=== PATIENT | female | born 1975 | race Caucasian/White ===

== ENCOUNTER 2017-01-31 15:01 | Emergency (ER) ==
[2017-01-31 15:05] VITALS: BP 149/93; TEMP 97.9; BMI 38.9
== END 2017-01-31 17:45 | disposition left against medical advice (07) ==
LOC: ED 15:01
DX: H57.9 Unspecified disorder of eye and adnexa (principal)
CPT/HCPCS: 99282

== ENCOUNTER 2017-10-12 19:03 | Emergency (ER) ==
[2017-10-12 19:08] VITALS: BMI 34.5
--- NOTE | 2017-10-12 19:32 | ED.PDOC ---
General ED Provider: Dr. CHARLES SMITH Chief Complaint: Cellulitis Stated Complaint: swelling redness in the right arm, thinks spider bite, Time Seen by Physician: 19:30 Mode of Arrival: Walk-In Information Source: Patient Primary Care Provider: JOSE JUAN HARRISON Nursing and Triage Documentation Reviewed and Agree: Yes Skin Complaint Exam - Skin/Soft Tissue Complaint/Exam Symptoms Are: Still present Timing: Constant Initial Severity: Moderate Current Severity: Moderate Character: Reports: Redness, Swelling, Raised, Painful Aggravating: Reports: Touch Alleviating: Reports: None Associated Signs and Symptoms: Reports: Bruising, Tenderness, Red streaks, Joint swelling Related Surgical History: Reports: None Recent Exposure to Others w/Similar Symptoms: No Skin Findings: Present: Erythema, Induration. Absent: Fluctuant mass Differential Diagnoses: Abscess, Cellulitis Review of Systems - Review Of Systems Constitutional: Reports: No symptoms Eyes: Reports: No symptoms Ears, Nose, Mouth, Throat: Reports: No symptoms Respiratory: Reports: No symptoms Cardiac: Reports: No symptoms GI: Reports: No symptoms : Reports: No symptoms Musculoskeletal: Reports: No symptoms Skin: Reports: No symptoms Neurological: Reports: No symptoms Endocrine: Reports: No symptoms Hematologic/Lymphatic: Reports: No symptoms All Other Systems: Reviewed and Negative Past Medical History - Past Medical History Previously Healthy: Yes Endocrine: Reports: None Cardiovascular: Reports: Hypertension Respiratory: Reports: None Hematological: Reports: None Gastrointestinal: Reports: None Genitourinary: Reports: UTI Neuro/Psych: Reports: None Musculoskeletal: Reports: Arthritis Cancer: Reports: Other (ovarian ) Last Menstrual Period: none Other Pertinent Past Medical History: FIBROMYALGIA. - Surgical History General Surgical History: Reports: Hysterectomy, , Tonsillectomy, Hernia Repair, Other (OVARIAN SURGERY) - Family History Family History: Reports: Unknown - Social History Smoking Status: Current every day smoker, Light tobacco smoker Smoking Cessation Counseling Time: > 3 min - 10 min Hx Substance Use: No Alcohol Screening: None Physical Exam - Physical Exam Appearance: Well-appearing, Obese Eyes: EUSEBIO, EOMI, Conjunctiva clear ENT: Ears normal, Nose normal, Oropharynx normal Respiratory: Airway patent, Breath sounds clear, Breath sounds equal, Respirations nonlabored Cardiovascular: RRR, Pulses normal, No rub, No murmur GI/: Soft, Nontender, No masses, Bowel sounds normal, No Organomegaly Musculoskeletal: Normal strength, ROM intact, No edema, No calf tenderness Skin: Warm, Dry, Normal color Neurological: Sensation intact, Motor intact, Reflexes intact, Cranial nerves intact, Alert, Oriented Psychiatric: Affect appropriate, Mood appropriate Critical Care Note - Critical Care Note Total Time (mins): 15 Course - Course Hematology/Chemistry: 10/12/17 19:46 10/12/17 19:46 Orders, Labs, Meds: Lab Review 10/12/17 10/12/17 10/12/17 19:46 19:46 19:46 WBC 12.08 H RBC 3.98 L Hgb 12.9 Hct 35.8 L MCV 89.9 MCH 32.4 H MCHC 36.0 H RDW Coeff of Mihir 12.6 Plt Count 311 Immature Gran % (Auto) 0.2 Neut % (Auto) 57.5 Lymph % (Auto) 32.7 [place] % (Auto) 5.9 Eos % (Auto) 3.2 Baso % (Auto) 0.5 Immature Gran # (Auto) 0.0 Neut # 6.9 Lymph # 4.0 H [place] # 0.7 Eos # 0.4 Baso # 0.1 D-Dimer (Manual) 556.59 Sodium 143 Potassium 2.6 L* Chloride 108 H Carbon Dioxide 20 L Anion Gap 17.6 BUN 14 Creatinine 0.89 Estimated GFR (MDRD) 70.00 BUN/Creatinine Ratio 15.73 Glucose 99 Calcium 9.5 Total Bilirubin 0.23 AST 14 L ALT 16 Alkaline Phosphatase 76 Total Protein 7.5 Albumin 3.2 L Globulin 4.3 Albumin/Globulin Ratio 0.74 Orders Category Date Time Status ED IV/MEDIPORT/POWERPORT .ONCE EMERGENCY 10/12/17 20:57 Active BLOOD CULTURE (ED ONLY) Stat LAB 10/12/17 19:46 Received CBC W/ AUTO DIFF Stat LAB 10/12/17 19:46 Completed COMPREHENSIVE METABOLIC PANEL Stat LAB 10/12/17 19:46 Completed D-DIMER Stat LAB 10/12/17 19:46 Completed DRUG SCREEN, URINE, RAPID Stat LAB 10/12/17 19:31 Uncollected URINALYSIS C & S IF INDICATED Stat LAB 10/12/17 19:31 Uncollected 0.9 % Sodium Chloride [Saline Flush] MEDS 10/12/17 20:57 Ordered 1 syr IVF PRN PRN Potassium Chloride Additive [Potassium Chloride 20 Meq MEDS 10/12/17 21:03 Discontinued Vial-Additive Only] 20 meq IV .STK-MED ONE Potassium Chloride [K-Dur] MEDS 10/12/17 20:58 Discontinued 40 meq PO ONCE STA Potassium Chloride in 0.9%NaCl [Sodium Chloride 0.9%- MEDS 10/12/17 20:57 Active KCl 20 Meq] 1,000 ml IV 100 mls/hr Medications Generic Name Dose Route Start Last Admin Trade Name Freq PRN Reason Stop Dose Admin Potassium Chloride/Sodium Chloride 1,000 mls @ 100 mls/hr 10/12/17 20:57 04/23 21:29 Sodium Chloride 0.9%-Kcl 20 Meq IV 10/13/17 06:56 100 mls/hr .Q10H STA Administration Sodium Chloride 1 syr 10/12/17 20:57 Saline Flush IVF PRN PRN To flush IV Discontinued Medications Generic Name Dose Route Start Last Admin Trade Name Freq PRN Reason Stop Dose Admin Potassium Chloride 40 meq 10/12/17 20:58 10/12/17 21:04 K-Dur PO 10/12/17 20:59 40 meq ONCE STA Administration Vital Signs: Temp Pulse Resp BP Pulse Ox 10/12/17 19:05 97.8 F 98 H 18 135/81 96 Departure - Departure Time of Disposition: 21:00 Disposition: AMA Discharge Problem: Cellulitis, Hypokalemia Instructions: Cellulitis (ED) Condition: Good Pt referred to PMD for follow-up: Yes Additional Instructions: PATIENT DONT WANT TO ADMITTED, SHE HAS TO TAKE CARE OF THE DAUGHTER, EXPLAINED THE POSSIBILITY OF THE CLOT, SHE NEEDS TO DO THE U/S IN THE MORNING. WARM COMPRESS. F/U WITH PMD IN 2 DAYS Prescriptions: Cephalexin [Keflex] 500 mg PO Q12HR #20 capsule Clindamycin HCl 300 mg PO TID #15 capsule Allergies/Adverse Reactions: Allergies nabumetone [From Relafen] Allergy (Mild, Verified 10/12/17 19:08) emesis codeine Adverse Reaction (Verified 10/12/17 19:08) morphine Adverse Reaction (Verified 10/12/17 19:08) Home Medications: Ambulatory Orders Oxycodone-Acetaminophen 10-325 [Percocet 10-325] 1 tab PO Q6H PRN 06/15/15 Dextroamphetamine/Amphetamine [Adderall 30 Mg Tablet] 30 mg PO BID #60 07/22/16 Cephalexin [Keflex] 500 mg PO Q12HR #20 capsule 10/12/17 Clindamycin HCl 300 mg PO TID #15 capsule 10/12/17 Losartan/Hydrochlorothiazide [Losartan-Hctz 50-12.5 mg Tab] 1 each PO DAILY 04/23 Disposition Discussed With: Patient, Family
[2017-10-12 19:49] LABS: BASOPHILS # (AUTO) 0.1 K/uL (0-0.2); BASOPHILS % (AUTO) 0.5 % (0.0-3.0); EOSINOPHILS # (AUTO) 0.4 K/ul (0.0-0.7); EOSINOPHILS % (AUTO) 3.2 % (0.0-7.0); HEMATOCRIT 35.8 % (37.0-47.0); HEMOGLOBIN 12.9 g/dl (12.0-16.0); IMMATURE GRANULOCYTE % (AUTO) 0.2 % (0.0-5.0); LYMPHOCYTES % (AUTO) 32.7 (10.0-50.0); MEAN CORPUSCULAR HEMOGLOBIN 32.4 pg (27.0-31.0); MEAN CORPUSCULAR VOLUME 89.9 fl (81.0-99.0); MONOCYTES # (AUTO) 0.7 K/uL (0.4-2.0); MONOCYTES % (AUTO) 5.9 (0-10); NEUTROPHILS # (AUTO) 6.9 K/ul (2.0-6.9); NEUTROPHILS % (AUTO) 57.5; PLATELET COUNT 311 10^3/uL (140-440); RED BLOOD COUNT 3.98 10^6/ul (4.20-5.40); WHITE BLOOD COUNT 12.08 K/ul (4.6-10.2)
[2017-10-12 20:08] LABS: ALBUMIN 3.2 g/dL (3.4-5.0); ALBUMIN/GLOBULIN RATIO 0.74; ANION GAP 17.6; BILIRUBIN,TOTAL 0.23 mg/dL (0.00-1.20); BUN/CREATININE RATIO 15.73; CALCIUM 9.5 mg/dL (8.2-10.2); CREATININE 0.89 mg/dL (0.60-1.30); TOTAL PROTEIN 7.5 g/dL (6.4-8.2)
[2017-10-12 20:13] LABS: POTASSIUM 2.6 mmol/L (3.5-5.10)
[2017-10-12] MEDS ORDERED: SODIUM CHLORIDE 0.9%-KCL 20 MEQ 1,000 ML IV STA (20:57)
[2017-10-12] MEDS ORDERED: K-DUR PO STA (20:58)
[2017-10-12] MEDS ORDERED: POTASSIUM CHLORIDE 20 MEQ VIAL-ADDITIVE ONLY IV ONE (21:03)
[2017-10-13 01:56] VITALS: TEMP 97.7
[2017-10-13 01:59] VITALS: BP 134/84
== END 2017-10-13 01:05 | disposition left against medical advice (07) ==
LOC: ED 19:03
DX: L03.113 Cellulitis of right upper limb (principal); E87.6 Hypokalemia; F17.210 Nicotine dependence, cigarettes, uncomplicated
CPT/HCPCS: 36415; 80053; 85025; 85379; 87040; 96360; 96361; 99284

== ENCOUNTER 2017-10-13 13:21 | Outpatient (CLI) ==
[2017-10-12 19:08] VITALS: BMI 34.5
--- NOTE | 2017-10-13 14:12 | US ---
EXAM: ULTRASOUND LOWER EXTREMITY VENOUS DOPPLER EXAM HISTORY: Leg swelling and pain. FINDINGS: Right lower extremity venous Doppler exam. Real time azevedo-scale, Doppler spectral analysis and color-flow Doppler imaging performed. The veins targeted for evaluation include the common femo ral, greater saphenous, profundus, femoral, popliteal, peroneal, anterior tibial and posterior tibial . The evaluated veins demonstrated normal spontaneous flow and compression without evidence of thro mbosis. IMPRESSION: No venous thrombosis identified within the areas evaluated.
== END 2017-10-13 13:22 | disposition home or self-care (01) ==
LOC: RAD 13:21
PROVIDERS: ATTEND Emergency Medicine
DX: M79.89 Other specified soft tissue disorders (principal)

== ENCOUNTER 2018-06-23 14:45 | Emergency (ER) ==
[2018-06-23 14:48] VITALS: BP 147/93; TEMP 98; BMI 38.9
--- NOTE | 2018-06-23 17:04 | CT ---
EXAM: CT of the left hand with contrast History: Left hand pain. Red and swollen between first and second metacarpals. Comparison: Left hand radiograph 07/15/2014 Technique: Multiplanar CT images through the left hand were obtained following administration of IV contrast. Findings: No acute fracture or dislocation. Well corticated ossific density seen adjacent to the sup erior scaphoid bone could represent accessory ossicle or related to old trauma. Joint spaces are rela tively preserved. No abnormal calcifications or radiopaque foreign bodies. There is dorsal subcutan eous edema over the second, third and fourth metacarpals with associated skin thickening but no well- defined enhancing drainable fluid collections. No soft tissue air. No evidence for osteomyelitis. Impression: 1. No acute osseous abnormality. 2. Dorsal cellulitis with no well-formed abscess identified.
[2018-06-23] MEDS ORDERED: ROCEPHIN 1 GM in SODIUM CHLORIDE 50 ML IV STA (17:38)
--- NOTE | 2018-06-23 17:41 | ED.PDOC ---
General ED Provider: Dr. KAROLINA HYDE Chief Complaint: Abscess Stated Complaint: rash edema left hand Time Seen by Physician: 15:00 (seen with destini at all times ) Mode of Arrival: Walk-In Information Source: Patient Exam Limitations: No limitations Nursing and Triage Documentation Reviewed and Agree: Yes Does patient meet sepsis criteria?: No System Inflammatory Response Syndrome: Not Applicable Sepsis Protocol: For patient's 13 years and over: Temp is 96.8 and below OR 101 and greater Pulse >90 BPM Resp >20/minute Acutely Altered Mental Status Are patient's symptoms suggestive of a new infection, such as: -Pneumonia -Skin, Soft Tissue -Endocarditis -UTI -Bone, Joint Infection -Implantable Device -Acute Abdominal Infection -Wound Infection -Meningitis -Blood Stream Catheter Infection -Unknown Musculoskeletal Complaint Exam - Hand/Wrist Complaint/Exam Location of Pain: Reports: Left, Hand Mechanism of Injury: Reports: No known trauma Onset/Duration: 4 days unaware of injury Symptoms Are: Still present Onset of Pain: Reports: Hours Initial Severity: Mild Current Severity: Mild Location: Reports: Discrete Character: Reports: Aching Alleviating: Reports: Rest Aggravating: Reports: Movement Associated Signs and Symptoms: Reports: Swelling, Redness (dorsal left hand ) Related History: Reports: Similar episode Dominant Hand: Right Related Surgical History: Reports: None Hand/Wrist Findings: Present: Swelling Differential Diagnoses: Cellulitis Review of Systems - Review Of Systems Constitutional: Reports: No symptoms Eyes: Reports: No symptoms Ears, Nose, Mouth, Throat: Reports: No symptoms Respiratory: Reports: No symptoms Cardiac: Reports: No symptoms GI: Reports: No symptoms : Reports: No symptoms Musculoskeletal: Reports: No symptoms Skin: Reports: Rash (left hand ) Neurological: Reports: No symptoms Endocrine: Reports: No symptoms Hematologic/Lymphatic: Reports: No symptoms All Other Systems: Reviewed and Negative Past Medical History - Past Medical History Previously Healthy: Yes Endocrine: Reports: None Cardiovascular: Reports: Hypertension Respiratory: Reports: None Hematological: Reports: None Gastrointestinal: Reports: None Genitourinary: Reports: UTI Neuro/Psych: Reports: None Musculoskeletal: Reports: Arthritis Cancer: Reports: Other (ovarian ) Last Menstrual Period: n/a Other Pertinent Past Medical History: FIBROMYALGIA. - Surgical History General Surgical History: Reports: Hysterectomy, , Tonsillectomy, Hernia Repair, Other (OVARIAN SURGERY) - Family History Family History: Reports: Unknown - Social History Smoking Status: Current every day smoker, Light tobacco smoker Hx Substance Use: No Alcohol Screening: None Physical Exam - Physical Exam Appearance: Well-appearing, No pain distress, Well-nourished Eyes: EUSEBIO, EOMI, Conjunctiva clear ENT: Ears normal, Nose normal, Oropharynx normal Respiratory: Airway patent, Breath sounds clear, Breath sounds equal, Respirations nonlabored Cardiovascular: RRR, Pulses normal, No rub, No murmur GI/: Soft, Nontender, No masses, Bowel sounds normal, No Organomegaly Musculoskeletal: Normal strength, ROM intact, No edema, No calf tenderness Skin: Warm, Dry (rash dorsal left hand ) Neurological: Sensation intact, Motor intact, Reflexes intact, Cranial nerves intact, Alert, Oriented Psychiatric: Affect appropriate, Mood appropriate Interpretation - Radiology Interpretation Radiology Interpretation By: Radiologist Radiology Results: No acute changes (dorsal cellulitis no abscess noted) Critical Care Note - Critical Care Note Total Time (mins): 0 Course - Course Hematology/Chemistry: 06/23/18 15:25 06/23/18 15:25 Orders, Labs, Meds: Lab Review 06/23/18 06/23/18 15:25 15:25 WBC 7.12 RBC 3.86 L Hgb 11.5 L Hct 34.1 L MCV 88.3 MCH 29.8 MCHC 33.7 RDW Coeff of Mihir 14.2 Plt Count 272 Immature Gran % (Auto) 0.1 Neut % (Auto) 48.1 Lymph % (Auto) 40.3 [place] % (Auto) 6.5 Eos % (Auto) 4.6 Baso % (Auto) 0.4 Immature Gran # (Auto) 0.0 Neut # (Auto) 3.4 Lymph # (Auto) 2.9 [place] # (Auto) 0.5 Eos # (Auto) 0.3 Baso # (Auto) 0.0 Sodium 140 Potassium 3.3 L Chloride 107 Carbon Dioxide 24 Anion Gap 12.3 BUN 10 Creatinine 0.79 Estimated GFR (MDRD) 80.00 BUN/Creatinine Ratio 12.65 Glucose 107 Calcium 9.3 Total Bilirubin 0.3 AST 11 L ALT 12 Alkaline Phosphatase 68 Total Protein 7.0 Albumin 3.0 L Globulin 4.0 Albumin/Globulin Ratio 0.75 Orders Category Date Time Status NPO REMINDER: IMAGING ONCE CARE 06/23/18 15:14 Active ED IV/MEDIPORT/POWERPORT .ONCE EMERGENCY 06/23/18 15:15 Active BLOOD CULTURE (ED ONLY) Stat LAB 06/23/18 15:25 Received CBC W/ AUTO DIFF Stat LAB 06/23/18 15:25 Completed COMPREHENSIVE METABOLIC PANEL Stat LAB 06/23/18 15:25 Completed 0.9 % Sodium Chloride [Saline Flush] MEDS 06/23/18 15:15 Active 1 syr IVF PRN PRN Ceftriaxone Sodium [Rocephin] 1 gm MEDS 06/23/18 17:38 Ordered 0.9 % Sodium Chloride [Sodium Chloride] [address] HAND LEFT WITH CONTRAST Stat RADS 06/23/18 15:13 Completed Medications Generic Name Dose Route Start Last Admin Trade Name Freq PRN Reason Stop Dose Admin Sodium Chloride 1 syr 06/23/18 15:15 Saline Flush IVF PRN PRN To flush IV Vital Signs: Temp Pulse Resp BP Pulse Ox 06/23/18 14:46 98.0 F 99 H 20 147/93 H 98 Departure - Departure Time of Disposition: 17:41 Disposition: HOME SELF-CARE Discharge Problem: Cellulitis of left hand Instructions: Cellulitis (ED) Condition: Good Pt referred to PMD for follow-up: Yes IPMP verified?: No Additional Instructions: Please call your Family Physician as soon as possible to schedule a follow-up appointment. Allergies/Adverse Reactions: Allergies nabumetone [From Relafen] Allergy (Mild, Verified 06/23/18 14:49) emesis codeine Adverse Reaction (Verified 06/23/18 14:49) morphine Adverse Reaction (Verified 06/23/18 14:49) Home Medications: Ambulatory Orders Dextroamphetamine/Amphetamine [Adderall 30 Mg Tablet] 30 mg PO BID #60 07/22/16 Losartan/Hydrochlorothiazide [Losartan-Hctz 100-12.5 mg Tab] 1 each PO DAILY Pregabalin [Lyrica] 50 mg PO DAILY 06/23/18 Disposition Discussed With: Patient
[2018-06-23] MEDS ORDERED: ROCEPHIN ONE (17:42)
== END 2018-06-23 18:40 | disposition home or self-care (01) ==
LOC: ED 14:45
DX: L03.114 Cellulitis of left upper limb (principal); F17.210 Nicotine dependence, cigarettes, uncomplicated
CPT/HCPCS: 36415; 80053; 85025; 87040; 96365; 99283

== ENCOUNTER 2018-08-15 04:17 | Outpatient (CLI) ==
[2018-08-15 04:46] VITALS: BMI 42.0
== END 2018-08-15 04:24 | disposition short-term general hospital (02) ==
LOC: AMBL 04:17
PROVIDERS: ATTEND Family Medicine
DX: R40.4 Transient alteration of awareness (principal); R53.83 Other fatigue; F19.90 Other psychoactive substance use, unspecified, uncomplicated; F17.210 Nicotine dependence, cigarettes, uncomplicated

== ENCOUNTER 2018-08-15 04:27 | Emergency (ER) ==
[2018-08-15] MEDS ORDERED: SODIUM CHLORIDE 1,000 ML IV STA (04:30)
[2018-08-15 04:46] VITALS: TEMP 98.2; BMI 42.0
--- NOTE | 2018-08-15 05:54 | ED.PDOC ---
Procedures - IV/Art Line Insertion Location: lt wrist Type of Line: Peripheral IV Invasive Line/IV Catheter Gauge: 24 Number of Attempts: 1 Blood Return Positive: Yes Invasive Line/IV Flushes Without Difficulty: Yes Conscious Sedation - Pre-op Assessment Weight: 236 lb 15.951 oz Surgical History: . HERNIA. OVARIAN SURGERY. TONSILS, FIBROMYALGIA. hysterectomy 1999 - Medical History Past Medical History: Hypertension, Cancer, Asthma, Kidney Stones, Depression, Anxiety, Migraines, Arthritis Other History: None - Physical Exam Heart Rate/Rhythm: Regular Rhythm, Regular Rate
--- NOTE | 2018-08-15 06:14 | ED.PDOC ---
General Stated Complaint: brought in by ems for "coming down off meth"--says has not slept for 5 days Time Seen by Physician: 04:30 Mode of Arrival: Ambulance Information Source: Patient, EMT Exam Limitations: No limitations Nursing and Triage Documentation Reviewed and Agree: Yes Does patient meet sepsis criteria?: No System Inflammatory Response Syndrome: Not Applicable <LACEY-ER,CHLOE - Last Filed: 08/15/18 06:12> <KAROLINA HYDE - Last Filed: 08/15/18 12:16> ED Provider: Dr. KAROLINA HYDE Chief Complaint: Overdose Sepsis Protocol: For patient's 13 years and over: Temp is 96.8 and below OR 101 and greater Pulse >90 BPM Resp >20/minute Acutely Altered Mental Status Are patient's symptoms suggestive of a new infection, such as: -Pneumonia -Skin, Soft Tissue -Endocarditis -UTI -Bone, Joint Infection -Implantable Device -Acute Abdominal Infection -Wound Infection -Meningitis -Blood Stream Catheter Infection -Unknown Miscellaneous Complaint Exam - Complex/Multi-System Complaint/Exam Onset/Duration: unknown Associated Signs and Symptoms: Reports: Decreased responsiveness, Weakness. Denies: Confusion, Agitation, Dizziness, Syncope, Headache, Short of air, Cough , Wheezing, Hemoptysis, Chest pain, Palpitations, Nausea, Vomiting, Dysuria Recent Echo/LV Function: No JVD Present: No Tachypnea Present: No Stridor Present: No Abdominal Findings: Present: Normal findings Meningeal Signs Positive: No Focal Weakness: Present: None Focal Sensory Loss: Present: None Gait: Normal, Unsteady Gag Reflex Present: Yes Skin Findings: Present: Normal findings Joint Swelling Present: No In-Dwelling Device Present: No Differential Diagnosis: Other Quality Indicator For Non-Traumatic Chest Pain/Syncope: EKG Performed <LACEY-ER,CHLOE - Last Filed: 08/15/18 06:12> Review of Systems - Review Of Systems Constitutional: Reports: Weakness Eyes: Reports: No symptoms Ears, Nose, Mouth, Throat: Reports: No symptoms Respiratory: Reports: No symptoms Cardiac: Reports: No symptoms GI: Reports: No symptoms : Reports: No symptoms Musculoskeletal: Reports: No symptoms Skin: Reports: No symptoms Neurological: Reports: Weakness Endocrine: Reports: No symptoms Hematologic/Lymphatic: Reports: No symptoms All Other Systems: Reviewed and Negative <FRANCESCHLOE - Last Filed: 08/15/18 06:12> Past Medical History - Past Medical History Previously Healthy: Yes Endocrine: Reports: None Cardiovascular: Reports: Hypertension Respiratory: Reports: None Hematological: Reports: None Gastrointestinal: Reports: None Genitourinary: Reports: UTI Neuro/Psych: Reports: None Musculoskeletal: Reports: Arthritis Cancer: Reports: Other (ovarian ) Last Menstrual Period: hysterectomy 2000 Other Pertinent Past Medical History: FIBROMYALGIA. - Surgical History General Surgical History: Reports: Hysterectomy, , Tonsillectomy, Hernia Repair, Other (OVARIAN SURGERY) - Family History Family History: Reports: Unknown - Social History Smoking Status: Current every day smoker, Heavy tobacco smoker Hx Substance Use: Yes (marijuana, meth) Alcohol Screening: Occasionally - Immunizations Tetanus Shot up to Date: Yes <CHLOE DANIELS - Last Filed: 08/15/18 06:12> Physical Exam - Physical Exam Appearance: Well-appearing, No pain distress, Well-nourished Eyes: EUSEBIO ENT: Ears normal Neck: Supple Respiratory: Airway patent Cardiovascular: RRR, Pulses normal, No rub, No murmur GI/: Soft Musculoskeletal: Normal strength, ROM intact, No edema, No calf tenderness Skin: Warm, Dry, Normal color Neurological: Alert, Oriented Psychiatric: Affect appropriate, Mood appropriate <CHLOE DANIELS - Last Filed: 08/15/18 06:12> Interpretation - EKG Interpretation Time of EKG #1: 06:15 Rate: Normal Rhythm: Sinus Ectopy: None [place]: NL ST Segment: Normal Interpretation: nsr <CHLOE DANIELS - Last Filed: 08/15/18 06:12> Critical Care Note - Critical Care Note Total Time (mins): 0 <KAROLINA HYDE - Last Filed: 08/15/18 12:16> Course - Course Hematology/Chemistry: 08/15/18 05:05 08/15/18 05:05 <CHLOE DANIELS - Last Filed: 08/15/18 06:12> - Course Hematology/Chemistry: 08/15/18 05:05 08/15/18 05:05 <KAROLINA HYDE - Last Filed: 08/15/18 12:16> - Course Orders, Labs, Meds: Lab Review 08/15/18 08/15/18 08/15/18 04:28 05:05 05:05 WBC 5.75 RBC 4.19 L Hgb 12.9 Hct 38.0 MCV 90.7 MCH 30.8 MCHC 33.9 RDW Coeff of Mihir 14.5 Plt Count 307 Immature Gran % (Auto) 0.3 Neut % (Auto) 47.2 Lymph % (Auto) 41.6 Bertie % (Auto) 5.9 Eos % (Auto) 4.3 Baso % (Auto) 0.7 Immature Gran # (Auto) 0.0 Neut # (Auto) 2.7 Lymph # (Auto) 2.4 Bertie # (Auto) 0.3 L Eos # (Auto) 0.3 Baso # (Auto) 0.0 Puncture Site Lbrach O2 Saturation 96.0 ABG pH 7.334 L ABG pCO2 41.6 ABG pO2 88.0 ABG HCO3 22.1 ABG Total CO2 23 ABG Base Excess -4 L Larry Test + FiO2 % 21.0 Sodium 141.5 Potassium 3.88 Chloride 110.7 H Carbon Dioxide 25.6 Anion Gap 9.08 BUN 11.0 Creatinine 1.14 Estimated GFR (MDRD) 52.00 BUN/Creatinine Ratio 9.64 Glucose 81.7 Calcium 9.11 Total Bilirubin 0.19 L AST 24.9 ALT 17.7 Alkaline Phosphatase 85.7 Total Protein 6.91 Albumin 3.79 Globulin 3.12 Albumin/Globulin Ratio 1.21 TSH 0.489 Urine Color Urine Clarity Urine pH Ur Specific [place] Urine Protein Urine Glucose (UA) Urine Ketones Urine Blood Urine Nitrite Urine Bilirubin Urine Urobilinogen Ur Leukocyte Esterase Urine Microscopic RBC Urine Microscopic WBC Ur Squamous Epith Cells Urine Bacteria Urine Mucus Salicylate Level mg/dL < 1.00 Urine Opiates Screen Ur Oxycodone Screen Urine Methadone Screen Ur Propoxyphene Screen Acetaminophen < 10.0 L Ur Barbiturates Screen U Tricyclic Antidepress Ur Phencyclidine Scrn Ur Amphetamine Screen U Methamphetamines Scrn U Benzodiazepines Scrn Urine Cocaine Screen U Cannabinoids Screen Plasma/Serum Alcohol < 10.0 08/15/18 08/15/18 11:15 11:15 WBC RBC Hgb Hct MCV MCH MCHC RDW Coeff of Mihir Plt Count Immature Gran % (Auto) Neut % (Auto) Lymph % (Auto) Bertie % (Auto) Eos % (Auto) Baso % (Auto) Immature Gran # (Auto) Neut # (Auto) Lymph # (Auto) Bertie # (Auto) Eos # (Auto) Baso # (Auto) Puncture Site O2 Saturation ABG pH ABG pCO2 ABG pO2 ABG HCO3 ABG Total CO2 ABG Base Excess Larry Test FiO2 % Sodium Potassium Chloride Carbon Dioxide Anion Gap BUN Creatinine Estimated GFR (MDRD) BUN/Creatinine Ratio Glucose Calcium Total Bilirubin AST ALT Alkaline Phosphatase Total Protein Albumin Globulin Albumin/Globulin Ratio TSH Urine Color Yellow Urine Clarity Slightly Urine pH 6.5 Ur Specific [place] 1.025 Urine Protein Negative Urine Glucose (UA) Negative Urine Ketones Negative Urine Blood 3+ Urine Nitrite Negative Urine Bilirubin Negative Urine Urobilinogen 0.2 Ur Leukocyte Esterase Negative Urine Microscopic RBC 30-50 Urine Microscopic WBC 0-2 Ur Squamous Epith Cells 0-2 Urine Bacteria Trace Urine Mucus 2+ Salicylate Level mg/dL Urine Opiates Screen Negative Ur Oxycodone Screen Negative Urine Methadone Screen Negative Ur Propoxyphene Screen Negative Acetaminophen Ur Barbiturates Screen Negative U Tricyclic Antidepress Negative Ur Phencyclidine Scrn Negative Ur Amphetamine Screen Positive U Methamphetamines Scrn Positive U Benzodiazepines Scrn Positive Urine Cocaine Screen Negative U Cannabinoids Screen Positive Plasma/Serum Alcohol Orders Category Date Time Status ABG DRAW REQUEST Stat CARDIO 08/15/18 04:29 Completed EKG-(ED ONLY) Stat CARDIO 08/15/18 04:28 Completed Government Affairs Fellow [ED [employer] APPLIED] .ONCE EMERGENCY 08/15/18 04:34 Active Consult Mental Health [ED MENTAL HEALTH CONSULT] .ONCE EMERGENCY 08/15/18 06: 16 Active ED IV/MEDIPORT/POWERPORT .ONCE EMERGENCY 08/15/18 04:30 Active ABG Stat LAB 08/15/18 04:28 Completed CBC W/ AUTO DIFF Stat LAB 08/15/18 05:05 Completed COMPREHENSIVE METABOLIC PANEL Stat LAB 08/15/18 05:05 Completed ETOH LEVEL [BLOOD ALCOHOL] Stat LAB 08/15/18 05:05 Completed SALICYLATE Stat LAB 08/15/18 05:05 Completed TSH [THYROID STIMULATING HORMONE] Stat LAB 08/15/18 05:05 Completed TYLENOL LEVEL [ACETAMINOPHEN] Stat LAB 08/15/18 05:05 Completed URINALYSIS C & S IF INDICATED Stat LAB 08/15/18 11:15 Completed URINE DRUG SCREEN (RAPID FOR ED) [DRUG SCREEN, URINE, LAB 08/15/18 11:15 Completed RAPID] Stat 0.9 % Sodium Chloride [Saline Flush] MEDS 08/15/18 04:30 Active 1 syr IVF PRN PRN Sodium Chloride 0.9% [Sodium Chloride] 1,000 ml MEDS 08/15/18 04:30 Active IV 125 mls/hr Medications Generic Name Dose Route Start Last Admin Trade Name Freq PRN Reason Stop Dose Admin Sodium Chloride 1,000 mls @ 125 mls/hr 08/15/18 04:30 08/15/18 05:56 Sodium Chloride IV 08/15/18 12:29 125 mls/hr .Q8H STA Administration Sodium Chloride 1 syr 08/15/18 04:30 08/15/18 05:56 Saline Flush IVF 1 syr PRN PRN Administration To flush IV Vital Signs: Temp Pulse Resp BP Pulse Ox 08/15/18 08:40 76 16 137/90 99 08/15/18 04:29 98.2 F 84 20 138/82 98 Departure <CHLOE DANIELS - Last Filed: 08/15/18 06:12> - Departure Time of Disposition: 12:15 Pt referred to PMD for follow-up: Yes IPMP verified?: No <KAROLINA HYDE - Last Filed: 08/15/18 12:16> - Departure Disposition: HOME SELF-CARE Discharge Problem: Drug overdose Hematuria Qualifiers: Hematuria type: unspecified type Qualified Code(s): R31.9 - Hematuria, unspecified Instructions: Hematuria (ED), Methamphetamine Abuse (ED) Condition: Good Additional Instructions: Please call your Family Physician as soon as possible to schedule a follow-up appointment. Allergies/Adverse Reactions: Allergies nabumetone [From Relafen] Allergy (Mild, Verified 08/15/18 04:55) emesis codeine Adverse Reaction (Verified 08/15/18 04:55) morphine Adverse Reaction (Verified 08/15/18 04:55) Home Medications: Ambulatory Orders Dextroamphetamine/Amphetamine [Adderall 30 Mg Tablet] 30 mg PO TID #60 07/22/16 Losartan/Hydrochlorothiazide [Losartan-Hctz 100-12.5 mg Tab] 1 each PO DAILY Pregabalin [Lyrica] 75 mg PO DAILY 06/23/18 Potassium Chloride [K-Dur] 20 meq PO BID 08/15/18
[2018-08-15 08:41] VITALS: BP 137/90
== END 2018-08-15 12:25 | disposition home or self-care (01) ==
LOC: ED 04:27
DX: T43.621A Poisoning by amphetamines, accidental (unintentional), initial encounter (principal); G47.00 Insomnia, unspecified; F17.210 Nicotine dependence, cigarettes, uncomplicated; R31.9 Hematuria, unspecified
CPT/HCPCS: 36415; 80053; 80306; 80307; 81001; 82803; 84443; 85025; 93005; 93010; 96360; 96361; 99283

== ENCOUNTER 2018-12-26 16:01 | Outpatient (CLI) | END 2018-12-26 16:02 | disposition home or self-care (01) | LOC: RHC-LAB 16:01 | PROVIDERS: ATTEND Nurse Practitioner Family | DX: R05 Cough (principal) | CPT/HCPCS: 87502 ==

== ENCOUNTER 2019-01-07 14:38 | Emergency (ER) ==
[2019-01-07 14:46] VITALS: BP 155/103; TEMP 97.9; BMI 41.1
--- NOTE | 2019-01-07 15:09 | ED.PDOC ---
General ED Provider: Dr. CHLOE VALENZUELA Chief Complaint: Extremity Pain/Injury Stated Complaint: Rt Ankle pain -fell and twisted a few days ago at the [employer] Time Seen by Physician: 15:00 Mode of Arrival: Walk-In Information Source: Patient Exam Limitations: No limitations Primary Care Provider: GUILLERMO STREETER Nursing and Triage Documentation Reviewed and Agree: Yes Does patient meet sepsis criteria?: No System Inflammatory Response Syndrome: Not Applicable Sepsis Protocol: For patient's 13 years and over: Temp is 96.8 and below OR 101 and greater Pulse >90 BPM Resp >20/minute Acutely Altered Mental Status Are patient's symptoms suggestive of a new infection, such as: -Pneumonia -Skin, Soft Tissue -Endocarditis -UTI -Bone, Joint Infection -Implantable Device -Acute Abdominal Infection -Wound Infection -Meningitis -Blood Stream Catheter Infection -Unknown Musculoskeletal Complaint Exam - Ankle/Foot Complaint/Exam Location of Injury: Reports: Right, Ankle Mechanism of Injury: Reports: Trauma, Other (twisted) Onset/Duration: last week Symptoms Are: Reports: Still present Onset of Pain: Reports: Immediate Initial Severity: Moderate Current Severity: Mild Location: Reports: Discrete (Medial ankle) Character: Reports: Aching Alleviating: Reports: Rest Aggravating: Reports: Movement, Weight bearing Able to Bear Weight: Yes Associated Signs and Symptoms: Reports: Swelling, Weakness Related History: Denies: Similar episode, Occupational injury Gout Risk Factors: Reports: None Related Surgical History: Reports: None Lower Extremity Findings: Present: Swelling. Absent: Ligamentous instability, Erythema, Warmth, Other joint pain Achilles Tendon Abnormality: No Tenderness: Present: Medial malleolus, Midfoot, Metatarsals Limited Range of Motion: Present: Eversion, Dorsiflexion Differential Diagnosis: Contusion, Strain Review of Systems - Review Of Systems Constitutional: Reports: No symptoms Eyes: Reports: No symptoms Ears, Nose, Mouth, Throat: Reports: No symptoms Respiratory: Reports: No symptoms Cardiac: Reports: No symptoms GI: Reports: No symptoms : Reports: No symptoms Musculoskeletal: Reports: No symptoms, Joint pain, Joint swelling Skin: Reports: No symptoms Neurological: Reports: No symptoms Endocrine: Reports: No symptoms Hematologic/Lymphatic: Reports: No symptoms All Other Systems: Reviewed and Negative Past Medical History - Past Medical History Previously Healthy: Yes Endocrine: Reports: None Cardiovascular: Reports: Hypertension Respiratory: Reports: None Hematological: Reports: None Gastrointestinal: Reports: None Genitourinary: Reports: UTI Neuro/Psych: Reports: None Musculoskeletal: Reports: Arthritis Cancer: Reports: Other (ovarian ) Last Menstrual Period: 1999 Other Pertinent Past Medical History: FIBROMYALGIA. - Surgical History General Surgical History: Reports: Hysterectomy, , Tonsillectomy, Hernia Repair, Other (OVARIAN SURGERY) - Family History Family History: Reports: Unknown - Social History Smoking Status: Current every day smoker, Heavy tobacco smoker Hx Substance Use: Yes (marijuana, meth in past) Alcohol Screening: None Physical Exam - Physical Exam Appearance: Obese Ill-appearing: None Pain Distress: None Eyes: EUSEBIO ENT: Ears normal Neck: Supple Respiratory: Airway patent, Breath sounds clear, Breath sounds equal, Respirations nonlabored Cardiovascular: RRR, Pulses normal, No rub, No murmur GI/: Soft Musculoskeletal: Normal strength, ROM intact, No edema, No calf tenderness Skin: Warm, Dry, Normal color Neurological: Sensation intact, Motor intact, Reflexes intact, Cranial nerves intact, Alert, Oriented Psychiatric: Affect appropriate, Mood appropriate Interpretation - Radiology Interpretation Radiology Results: Negative (ankle -no acute findings) Critical Care Note - Critical Care Note Total Time (mins): 0 Course - Course Orders, Labs, Meds: Orders Category Date Time Status ANKLE, RIGHT MIN 3 VIEWS Stat RADS 01/07/19 15:08 Completed Vital Signs: Temp Pulse Resp BP Pulse Ox 01/07/19 14:38 97.9 F 111 H 20 155/103 H 98 Departure - Departure Time of Disposition: 16:10 Disposition: HOME SELF-CARE Discharge Problem: Right ankle strain Instructions: Ankle Strain (ED) Condition: Fair Pt referred to PMD for follow-up: Yes IPMP verified?: No Additional Instructions: Ammon wrap , Ice rt ankle for 15 min twice daily Follow up pcp 1 week Keep leg elevated. Allergies/Adverse Reactions: Allergies nabumetone [From Relafen] Allergy (Mild, Verified 01/07/19 14:46) emesis codeine Adverse Reaction (Verified 01/07/19 14:46) morphine Adverse Reaction (Verified 01/07/19 14:46) Home Medications: Ambulatory Orders Losartan/Hydrochlorothiazide [Losartan-Hctz 100-12.5 mg Tab] 1 each PO DAILY Pregabalin [Lyrica] 75 mg PO DAILY 06/23/18 Potassium Chloride [K-Dur] 20 meq PO BID 08/15/18 Disposition Discussed With: Patient
--- NOTE | 2019-01-07 15:29 | DI ---
Exam: Three-view right ankle. Date: 01/07/2019. Comparison: None. HISTORY: Twisted ankle. FINDINGS: The soft tissues are within normal limits. The mineralization is normal. There is a smal l enthesis off the medial malleolus. The bones are intact and no fracture or dislocation is observed . Calcaneal spur is present. Dystrophic calcifications are seen at the insertion of the Achilles te ndon on the posterior calcaneus. Impression: No acute osseous abnormality in the right ankle. Calcaneal spur.
== END 2019-01-07 16:35 | disposition home or self-care (01) ==
LOC: ED 14:38
DX: S96.911A Strain of unspecified muscle and tendon at ankle and foot level, right foot, initial encounter (principal); W19.XXXA Unspecified fall, initial encounter; F17.210 Nicotine dependence, cigarettes, uncomplicated
CPT/HCPCS: 99283

== ENCOUNTER 2019-01-17 14:51 | Emergency (ER) ==
[2019-01-17 14:58] VITALS: BP 150/85; TEMP 99.6; BMI 42.9
--- NOTE | 2019-01-17 16:17 | DI ---
EXAM: Three views of the right ankle. History: Right ankle pain. Comparison: Right ankle radiograph 01/07/2019 Findings: No acute fracture or dislocation. Hypertrophic osseous changes of the medial and lateral malleolus compatible with old ligamentous injury. Moderate sized plantar spur. Large enthesiophyte at the insertion of the Achilles tendon. There is calcification within the distal Achilles tendon co nsistent with chronic tendinopathy. There is increased soft tissue swelling of the ankle compared to the prior study. Impression: 1. No acute osseous abnormality. 2. Increased soft tissue swelling at the ankle compared to the prior study. 2. Chronic Achilles tendinopathy.
--- NOTE | 2019-01-17 16:17 | DI ---
EXAM: Three views of the right foot. History: Right foot pain. Findings: No acute fracture or dislocation. Plantar spur and enthesiophyte at the insertion of the Achilles tendon. There is calcification within distal Achilles tendon. Soft tissue swelling at the ankle. Mild polyarticular joint space narrowing with small osteophytes. Impression: 1. No acute osseous abnormality. 2. Soft tissue swelling. 3. Mild arthritis. 4. Calcaneal enthesopathy with chronic Achilles tendinopathy.
--- NOTE | 2019-01-17 16:37 | ED.PDOC ---
General ED Provider: Dr. KAROLINA HYDE Chief Complaint: Foot Pain/Injury Stated Complaint: foot and ankle pain right side Time Seen by Physician: 14:57 (seen with joanna at all times ) Mode of Arrival: Walk-In Information Source: Patient Exam Limitations: No limitations Primary Care Provider: GUILLERMO STREETER Nursing and Triage Documentation Reviewed and Agree: Yes Does patient meet sepsis criteria?: No System Inflammatory Response Syndrome: Not Applicable Sepsis Protocol: For patient's 13 years and over: Temp is 96.8 and below OR 101 and greater Pulse >90 BPM Resp >20/minute Acutely Altered Mental Status Are patient's symptoms suggestive of a new infection, such as: -Pneumonia -Skin, Soft Tissue -Endocarditis -UTI -Bone, Joint Infection -Implantable Device -Acute Abdominal Infection -Wound Infection -Meningitis -Blood Stream Catheter Infection -Unknown Musculoskeletal Complaint Exam - Ankle/Foot Complaint/Exam Location of Injury: Reports: Right, Ankle, Foot Mechanism of Injury: Reports: Trauma (pain) Onset/Duration: 1 day Symptoms Are: Reports: Still present Onset of Pain: Reports: Hours Initial Severity: Moderate Current Severity: Moderate Location: Reports: Discrete Character: Reports: Aching Alleviating: Reports: Rest, Position Aggravating: Reports: Movement Associated Signs and Symptoms: Reports: Swelling. Denies: Redness, Bruising, Fever, Weakness, Numbness, Tingling Gout Risk Factors: Reports: >40 years old Related Surgical History: Reports: None Lower Extremity Findings: Present: Swelling Achilles Tendon Abnormality: No Tenderness: Present: Lateral malleolus (with edema ) Differential Diagnosis: Closed Fracture, Sprain, Strain Review of Systems - Review Of Systems Constitutional: Reports: No symptoms Eyes: Reports: No symptoms Ears, Nose, Mouth, Throat: Reports: No symptoms Respiratory: Reports: No symptoms Cardiac: Reports: No symptoms GI: Reports: No symptoms : Reports: No symptoms Musculoskeletal: Reports: Joint pain (ankle pain ) Skin: Reports: No symptoms Neurological: Reports: No symptoms Endocrine: Reports: No symptoms Hematologic/Lymphatic: Reports: No symptoms All Other Systems: Reviewed and Negative Past Medical History - Past Medical History Previously Healthy: Yes Endocrine: Reports: None Cardiovascular: Reports: Hypertension Respiratory: Reports: None Hematological: Reports: None Gastrointestinal: Reports: None Genitourinary: Reports: UTI Neuro/Psych: Reports: None Musculoskeletal: Reports: Arthritis Cancer: Reports: Other (ovarian ) Last Menstrual Period: none Other Pertinent Past Medical History: FIBROMYALGIA. - Surgical History General Surgical History: Reports: Hysterectomy, , Tonsillectomy, Hernia Repair, Other (OVARIAN SURGERY) - Family History Family History: Reports: Unknown - Social History Smoking Status: Current every day smoker, Heavy tobacco smoker Hx Substance Use: Yes (marijuana, meth in past) Alcohol Screening: None Physical Exam - Physical Exam Appearance: Well-appearing, No pain distress, Well-nourished Eyes: EUSEBIO, EOMI, Conjunctiva clear ENT: Ears normal, Nose normal, Oropharynx normal Respiratory: Airway patent, Breath sounds clear, Breath sounds equal, Respirations nonlabored Cardiovascular: RRR, Pulses normal, No rub, No murmur GI/: Soft, Nontender, No masses, Bowel sounds normal, No Organomegaly Musculoskeletal: Limited ROM Skin: Warm, Dry, Normal color Neurological: Sensation intact, Motor intact, Reflexes intact, Cranial nerves intact, Alert, Oriented Psychiatric: Affect appropriate, Mood appropriate Interpretation - Radiology Interpretation Radiology Interpretation By: Radiologist Exam Interpreted: Other (ankle pain) Critical Care Note - Critical Care Note Total Time (mins): 0 Course - Course Orders, Labs, Meds: Orders Category Date Time Status ANKLE, RIGHT MIN 3 VIEWS Stat RADS 01/17/19 15:48 Completed FOOT, RIGHT 3 VIEWS Stat RADS 01/17/19 15:48 Completed Vital Signs: Temp Pulse Resp BP Pulse Ox 01/17/19 14:51 99.6 F 110 H 18 150/85 H 97 Departure - Departure Time of Disposition: 16:37 Disposition: HOME SELF-CARE Discharge Problem: Edema of right foot Ankle sprain Qualifiers: Encounter type: initial encounter Involved ligament of ankle: unspecified ligament Laterality: right Qualified Code(s): S93.401A - Sprain of unspecified ligament of right ankle, initial encounter Sprain of foot, right Qualifiers: Encounter type: sequela Qualified Code(s): S93.601S - Unspecified sprain of right foot, sequela Instructions: Foot Sprain (ED) Condition: Good Pt referred to PMD for follow-up: Yes IPMP verified?: No Additional Instructions: Please call your Family Physician as soon as possible to schedule a follow-up appointment.Please call your Family Physician as soon as possible to schedule a follow-up appointment. Allergies/Adverse Reactions: Allergies nabumetone [From Relafen] Allergy (Mild, Verified 01/17/19 15:04) emesis codeine Adverse Reaction (Verified 01/17/19 15:04) morphine Adverse Reaction (Verified 01/17/19 15:04) Home Medications: Ambulatory Orders Losartan/Hydrochlorothiazide [Losartan-Hctz 100-12.5 mg Tab] 1 each PO DAILY Pregabalin [Lyrica] 75 mg PO DAILY 06/23/18 Potassium Chloride [K-Dur] 20 meq PO BID 08/15/18
== END 2019-01-17 16:50 | disposition home or self-care (01) ==
LOC: ED 14:51
DX: M25.571 Pain in right ankle and joints of right foot (principal); M25.474 Effusion, right foot; S93.401A Sprain of unspecified ligament of right ankle, initial encounter; S93.601S Unspecified sprain of right foot, sequela
CPT/HCPCS: 99282

== ENCOUNTER 2019-04-26 11:56 | Outpatient (CLI) | END 2019-04-26 11:57 | disposition home or self-care (01) | LOC: RHC-LAB 11:56 | PROVIDERS: ATTEND Nurse Practitioner Family | DX: E78.5 Hyperlipidemia, unspecified (principal); E55.9 Vitamin D deficiency, unspecified; Z72.0 Tobacco use ==

== ENCOUNTER 2019-05-12 07:33 | Emergency (ER) ==
[2019-05-12 07:44] VITALS: BP 121/84; TEMP 98; BMI 39.9
[2019-05-12] MEDS ORDERED: TORADOL IM STA (08:29)
--- NOTE | 2019-05-12 08:33 | ED.PDOC ---
General ED Provider: Dr. NAKUL GABRIEL Chief Complaint: Fall Stated Complaint: Patient is a 44 year old female who come to the ER complaining of right hip and bilateral knee pain after she slipped and fell in the bathroom. She was able to bear weight up arrival. Time Seen by Physician: 08:31 Mode of Arrival: Walk-In Information Source: Patient Exam Limitations: No limitations Primary Care Provider: GUILLERMO STREETER Nursing and Triage Documentation Reviewed and Agree: Yes Does patient meet sepsis criteria?: No System Inflammatory Response Syndrome: Not Applicable Sepsis Protocol: For patient's 13 years and over: Temp is 96.8 and below OR 101 and greater Pulse >90 BPM Resp >20/minute Acutely Altered Mental Status Are patient's symptoms suggestive of a new infection, such as: -Pneumonia -Skin, Soft Tissue -Endocarditis -UTI -Bone, Joint Infection -Implantable Device -Acute Abdominal Infection -Wound Infection -Meningitis -Blood Stream Catheter Infection -Unknown Musculoskeletal Complaint Exam - Hip/Pelvis Complaint/Exam Location of Pain: Reports: Right, Hip Mechanism of Injury: Reports: Trauma (fall ) Onset/Duration: this morning Symptoms Are: Still present Initial Severity: Severe Current Severity: Moderate Location: Reports: Diffuse Character: Reports: Aching, Throbbing Aggravating: Reports: Movement Associated Signs and Symptoms: Denies: Swelling, Redness, Bruising, Fever, Weakness, Dizziness, Syncope, Abdominal pain, Knee pain Able to Bear Weight: Yes Septic Arthritis Risk Factors: Reports: None Related Surgical History: Reports: None Tenderness: Present: Right Range of Motion Limited In: Present: Flexion NV Bundle Intact Distal to Injury: No Differential Diagnoses: Arthritis, Fracture, Sprain, Strain Review of Systems - Review Of Systems Constitutional: Reports: No symptoms Eyes: Reports: No symptoms Ears, Nose, Mouth, Throat: Reports: No symptoms Respiratory: Reports: No symptoms Cardiac: Reports: No symptoms GI: Reports: No symptoms : Reports: No symptoms Musculoskeletal: Reports: Joint pain Skin: Reports: Bruising Neurological: Reports: Anxiety Endocrine: Reports: No symptoms Hematologic/Lymphatic: Reports: No symptoms All Other Systems: Reviewed and Negative Past Medical History - Past Medical History Previously Healthy: Yes Endocrine: Reports: None Cardiovascular: Reports: Hypertension Respiratory: Reports: None Hematological: Reports: None Gastrointestinal: Reports: None Genitourinary: Reports: UTI Neuro/Psych: Reports: None Musculoskeletal: Reports: Arthritis Cancer: Reports: Other (ovarian ) Last Menstrual Period: n/a Other Pertinent Past Medical History: FIBROMYALGIA. - Surgical History General Surgical History: Reports: Hysterectomy, , Tonsillectomy, Hernia Repair, Other (OVARIAN SURGERY) - Family History Family History: Reports: Unknown - Social History Smoking Status: Current every day smoker, Heavy tobacco smoker Hx Substance Use: Yes (marijuana, meth in past) Alcohol Screening: None Physical Exam - Physical Exam Appearance: Obese Pain Distress: Moderate Neck: Supple Respiratory: Airway patent, Breath sounds clear, Breath sounds equal, Respirations nonlabored Cardiovascular: RRR, Pulses normal, No rub, No murmur Musculoskeletal: Limited ROM (right hip and knees ) Skin: Warm, Dry, Normal color Neurological: Sensation intact, Motor intact, Reflexes intact, Cranial nerves intact, Alert, Oriented Interpretation - Radiology Interpretation Radiology Interpretation By: Radiologist Radiology Results: Negative Exam Interpreted: Other (hip, pelvis and knees ) Critical Care Note - Critical Care Note Total Time (mins): 0 Course - Course Orders, Labs, Meds: Orders Category Date Time Status Ketorolac Tromethamine [Toradol] MEDS 05/12/19 08:29 Discontinued 60 mg IM ONCE STA HIP, RIGHT 2 VIEWS Stat RADS 05/12/19 08:21 Completed KNEE, LEFT 4 VIEWS Stat RADS 05/12/19 08:22 Completed KNEE, RIGHT 4 VIEWS Stat RADS 05/12/19 08:22 Completed PELVIS 1 OR 2 VIEWS Stat RADS 05/12/19 08:21 Completed Medications Discontinued Medications Generic Name Dose Route Start Last Admin Trade Name Freq PRN Reason Stop Dose Admin Ketorolac Tromethamine 60 mg 05/12/19 08:29 05/12/19 09:05 Toradol IM 05/12/19 08:30 60 mg ONCE STA Administration Vital Signs: Temp Pulse Resp BP Pulse Ox 05/12/19 07:34 98.0 F 88 20 121/84 97 Departure - Departure Time of Disposition: 09:40 Disposition: HOME SELF-CARE Discharge Problem: Hip injury Qualifiers: Encounter type: initial encounter Laterality: right Qualified Code(s): S79.911A - Unspecified injury of right hip, initial encounter Knee injuries Qualifiers: Encounter type: initial encounter Laterality: unspecified laterality Qualified Code(s): S89.90XA - Unspecified injury of unspecified lower leg, initial encounter Instructions: Knee Pain (ED), Hip Pain (ED) Condition: Fair Pt referred to PMD for follow-up: Yes IPMP verified?: No Additional Instructions: Take medications as prescribed Follow up with PCP in 3 days Prescriptions: Ibuprofen [Motrin] 600 mg PO Q6H PRN #30 tablet PRN Reason: Analgesia Allergies/Adverse Reactions: Allergies nabumetone [From Relafen] Allergy (Mild, Verified 05/12/19 07:42) emesis codeine Adverse Reaction (Verified 05/12/19 07:42) morphine Adverse Reaction (Verified 05/12/19 07:42) Home Medications: Ambulatory Orders Ibuprofen [Motrin] 600 mg PO Q6H PRN #30 tablet 05/12/19 Disposition Discussed With: Patient, Family
--- NOTE | 2019-05-12 09:00 | DI ---
Exam: Two-view pelvis. Date: 05/12/2019. Comparison: None. HISTORY: Fell with pelvic pain. FINDINGS: Mesh from a probable inguinal hernia repair and other surgery is present over the pelvis. The mineralization is normal. The pelvic ring is intact. Both femoral heads appropriately seated a nd no fracture or dislocation is observed. Impression: No acute osseous abnormality in the bony pelvis.
--- NOTE | 2019-05-12 09:00 | DI ---
Exam: Two-view right hip. Date: 05/12/2019. Comparison: 06/21/2011. HISTORY: Fell with right hip pain. FINDINGS: Mesh from previous surgical repair is again seen over the pelvis. The right hemipelvis is intact. The bones are intact and no fracture is observed. The femoral heads appropriately seated. Impression: No acute osseous abnormality in the right hip.
--- NOTE | 2019-05-12 09:01 | DI ---
Exam: Three-view right knee. Date: 05/12/2019. Comparison: None. HISTORY: Knee pain after a fall. FINDINGS: The soft tissues are within normal limits. The mineralization is normal. There is no eff usion. There is a small entheses on the superior pole of the patella. The bones are intact and no f racture or dislocation is observed. Impression: No acute osseous abnormality in the right knee.
--- NOTE | 2019-05-12 09:02 | DI ---
Exam: Four view left knee. Date: 05/12/2019. Comparison: None. HISTORY: Knee pain after a fall. FINDINGS: The soft tissues are within normal limits. The mineralization is normal. There is no eff usion. The bones are intact and the joint spaces are preserved. Impression: No acute osseous abnormality in the left knee.
== END 2019-05-12 09:48 | disposition home or self-care (01) ==
LOC: ED 07:33
DX: S79.911A Unspecified injury of right hip, initial encounter (principal); S89.92XA Unspecified injury of left lower leg, initial encounter; S89.91XA Unspecified injury of right lower leg, initial encounter; W01.0XXA Fall on same level from slipping, tripping and stumbling without subsequent striking against object, initial encounter; F17.210 Nicotine dependence, cigarettes, uncomplicated
CPT/HCPCS: 96372; 99283